=== PATIENT | male | born 1935 | race Caucasian/White ===

== ENCOUNTER 2017-05-06 01:30 | Inpatient (IN) | payer MEDICARE, OTHER ==
[2017-05-06] MEDS ORDERED: Acetaminophen 650 MG Supp RECTAL ONE (01:40)
--- NOTE | 2017-05-06 01:46 | EDM.PDOC ---
ED HPI GENERAL MEDICAL PROBLEM - General Chief Complaint: Fever Stated Complaint: low oxygenation Time Seen by Provider: 05/06/17 01:37 Source of Information: Reports: EMS, EMS Notes Reviewed, Intermediate Records History Limitations: Reports: Altered Mental Status - History of Present Illness INITIAL COMMENTS - FREE TEXT/NARRATIVE: PT PRESENTS FROM [facility] FOR C/O FEVER, DECREASED O2 SATS, AND ADVENTITIOUS BREATH SOUNDS THAT WAS SAID TO HAVE BEGUN TODAY. PT IS DNR. Onset: Gradual Onset Date: 05/06/17 Improves with: Reports: None Worsens with: Reports: None Associated Symptoms: Reports: Cough, Fever/Chills - Related Data Allergies Allergy/AdvReac Type Severity Reaction Status Date / Time Fish Containing Products Allergy Cannot Verified 09/25/16 14:24 Remember perfume Allergy Cannot Verified 09/25/16 14:24 Remember shellfish derived Allergy Cannot Verified 09/25/16 14:24 Remember trazodone Allergy Cannot Verified 09/25/16 14:24 Remember Home Meds: Home Meds Acetaminophen 325 - 650 mg PO Q4H PRN 01/03/16 [History] Aspirin 81 mg PO QAM 01/03/16 [History] Mirtazapine 7.5 mg PO BEDTIME 01/03/16 [History] Polyethylene Glycol 3350 [Miralax] 17 gm PO QAM 01/03/16 [History] Bisacodyl [Dulcolax] 10 mg RECTAL DAILY PRN 09/25/16 [History] Donepezil HCl [Aricept] 10 mg PO BEDTIME 09/25/16 [History] Magnesium Hydroxide [Milk of Magnesia] 30 ml PO DAILY PRN 09/25/16 [History] Levofloxacin [Levaquin] 750 mg PO DAILY #5 tablet 10/02/16 [Rx] Past Medical History Cardiovascular History: Reports: High Cholesterol, Hypertension Respiratory History: Reports: COPD Gastrointestinal History: Reports: Chronic Constipation, GERD Genitourinary History: Reports: Prostate Disorder Musculoskeletal History: Reports: Back Pain, Chronic Neurological History: Reports: Other (See Below) Other Neuro History: dementia Psychiatric History: Reports: Anxiety, Dementia, Depression Oncologic (Cancer) History: Reports: Prostate Dermatologic History: Reports: Other (See Below) Other Dermatologic History: reddened pio to right hand, forearm and upper arm. rash on left elbow - Past Surgical History Male Surgical History: Reports: Circumcision Social & Family History - Family History Cardiac: Reports: Other (See Below) Respiratory: Reports: None GI: Reports: None : Reports: None OBGYN: Reports: None Musculoskeletal: Reports: None Neurological: Reports: None Psychiatric: Reports: None Endocrine/Metabolic: Reports: None Hematologic: Reports: None Immunologic: Reports: None Dermatologic: Reports: None Oncologic: Reports: None - Tobacco Use Smoking Status *Q: Unknown Ever Smoked ED ROS GENERAL - Review of Systems Review Of Systems: ROS reveals no pertinent complaints other than HPI. Constitutional: Reports: Fever HEENT: Reports: No Symptoms Respiratory: Reports: Cough Cardiovascular: Reports: No Symptoms Endocrine: Reports: No Symptoms GI/Abdominal: Reports: No Symptoms : Reports: No Symptoms Musculoskeletal: Reports: No Symptoms Skin: Reports: No Symptoms Neurological: Reports: No Symptoms Psychiatric: Reports: No Symptoms Hematologic/Lymphatic: Reports: Easy Bruising Immunologic: Reports: No Symptoms ED EXAM, GENERAL - Physical Exam Exam: See Below Exam Limited By: Altered Mental Status General Appearance: Lethargic Eye Exam: Bilateral Eye: Normal Inspection Nose: Normal Inspection, Normal Mucosa, No Blood Throat/Mouth: Normal Inspection, Normal Oropharynx, No Airway Compromise Head: Atraumatic, Normocephalic Neck: Normal Inspection Respiratory/Chest: No Respiratory Distress, Rales, Rhonchi Cardiovascular: Regular Rate, Rhythm Extremities: Normal Inspection, No Pedal Edema Neurological: Slow to Respond Skin Exam: Warm, Dry, Intact, No Rash Course - Orders/Labs/Meds Orders: Active Orders 24 hr Category Date Time Status Chest 1V Frontal [CR] Stat Exams 05/06/17 01:38 Ordered B-TYPE NATRIURETIC PEPTIDE,BNP [CHEM] Stat Lab 05/06/17 01:38 Ordered CBC WITH AUTO DIFF [HEME] Stat Lab 05/06/17 01:38 Ordered COMPREHENSIVE METABOLIC PN,CMP [CHEM] Stat Lab 05/06/17 01:38 Ordered - Radiology Interpretation Free Text/Narrative:: CXR SHOWS BILAT LOWER LOBE INFILTRATES - Re-Assessments/Exams Free Text/Narrative Re-Assessment/Exam: 05/06/17 02:16 DISCUSSED CASE WITH DEVAN NICOLAS FROM [facility]. WILL ADMIT INPATIENT AND FOLLOW Departure - Departure Time of Disposition: 02:16 Disposition: Admitted As Inpatient 68 Condition: Serious Clinical Impression: Pneumonia Qualifiers: Pneumonia type: due to unspecified organism Laterality: bilateral Lung location : lower lobe of lung Qualified Code(s): J18.9 - Pneumonia, unspecified organism Fever Qualifiers: Encounter type: initial encounter - Discharge Information - My Orders Last 24 Hours: My Active Orders 05/06/17 01:38 Chest 1V Frontal [CR] Stat B-TYPE NATRIURETIC PEPTIDE,BNP [CHEM] Stat CBC WITH AUTO DIFF [HEME] Stat COMPREHENSIVE METABOLIC PN,CMP [CHEM] Stat - Assessment/Plan Last 24 Hours: My Active Orders 05/06/17 01:38 Chest 1V Frontal [CR] Stat B-TYPE NATRIURETIC PEPTIDE,BNP [CHEM] Stat CBC WITH AUTO DIFF [HEME] Stat COMPREHENSIVE METABOLIC PN,CMP [CHEM] Stat Assessment:: PNEUMONIA Plan: ADMIT INPATIENT
[2017-05-06] MEDS ORDERED: Azithromycin 500 MG in Sodium Chloride 0.9% 250 ML IV ONE (02:06)
[2017-05-06] MEDS ORDERED: cefTRIAXone 1 GM Vial IVPUSH ONE (02:06)
[2017-05-06 02:29] LABS: CHLORIDE,CL 104 mmol/L (98-115); SODIUM,NA 142 mmol/L (136-145)
[2017-05-06] MEDS ORDERED: Sodium Chloride 0.9% 100 ML ONE (03:09)
[2017-05-06] MEDS ORDERED: Acetaminophen 325 MG Tab PO PRN (03:49)
--- NOTE | 2017-05-06 09:45 | PCM.HP ---
H&P History of Present Illness - General Date of Service: 05/06/17 Source of Information: Old Records, Provider, RN History Limitations: Reports: Altered Mental Status - History of Present Illness Initial Comments - Free Text/Narative: This 81-year-old gentleman was admitted through the ED he is a resident of a long-term care center with significant dementia he had came in due to the nursing staff stating he had a temperature of 101, with low oxygen saturations. No other details on history/information from ED admitting provider, patient does not communicate at all due to his severe dementia. Patient is on the memory care unit at [place]. He did sustain a fall on March 28 however did not hit his head, his knees gave out he slowed slowly lowered himself to the floor--no other injury. Patient is a DNR - Related Data Allergies/Adverse Reactions: Allergies Allergy/AdvReac Type Severity Reaction Status Date / Time Fish Containing Products Allergy Cannot Verified 05/06/17 03:32 Remember perfume Allergy Cannot Verified 05/06/17 03:32 Remember shellfish derived Allergy Cannot Verified 05/06/17 03:32 Remember trazodone Allergy Cannot Verified 05/06/17 03:32 Remember Home Medications: Home Meds Acetaminophen 325 - 650 mg PO Q4H PRN 01/03/16 [History] Aspirin 81 mg PO 0900 01/03/16 [History] Polyethylene Glycol 3350 [Miralax] 17 gm PO 0900 01/03/16 [History] Donepezil HCl [Aricept] 10 mg PO 1800 09/25/16 [History] Magnesium Hydroxide [Milk of Magnesia] 30 ml PO DAILY PRN 09/25/16 [History] Past Medical History HEENT History: Reports: Allergic Rhinitis Cardiovascular History: Reports: CAD, High Cholesterol, Hypertension Respiratory History: Reports: COPD Gastrointestinal History: Reports: Chronic Constipation, GERD Genitourinary History: Reports: Prostate Disorder Musculoskeletal History: Reports: Back Pain, Chronic Neurological History: Reports: Other (See Below) Other Neuro History: dementia with behavior disturbances. Psychiatric History: Reports: Anxiety, Dementia, Depression, Other (See Below) Other Psychiatric History: Dementia with behavior disturbances Oncologic (Cancer) History: Reports: Prostate Dermatologic History: Reports: Other (See Below) Other Dermatologic History: reddened pio to right hand, forearm and upper arm. rash on left elbow, which looks similar to psoriasis - Past Surgical History Male Surgical History: Reports: Circumcision Social & Family History - Family History Cardiac: Reports: Other (See Below) Respiratory: Reports: None GI: Reports: None : Reports: None OBGYN: Reports: None Musculoskeletal: Reports: None Neurological: Reports: None Psychiatric: Reports: None Endocrine/Metabolic: Reports: None Hematologic: Reports: None Immunologic: Reports: None Dermatologic: Reports: None Oncologic: Reports: None - Tobacco Use Smoking Status *Q: Unknown Ever Smoked H&P Review of Systems - Review of Systems: Review Of Systems: See Below Free Text/Narrative: Unable to obtain review of systems due to dementia and altered mental status General: Denies: Fever Exam - Exam Exam: See Below - Vital Signs Vital Signs: Last Vital Signs Temp 99.6 F 05/06/17 06:22 Pulse 91 05/06/17 06:22 Resp 28 H 05/06/17 06:22 BP 107/51 L 05/06/17 06:22 Pulse Ox 93 L 05/06/17 06:35 Weight: 156 lb 6 oz - Exam Quality Assessment: Supplemental Oxygen (High flow nonrebreather oxygen), DVT Prophylaxis General: Other (Will open eyes to stimulus). No: Alert, Oriented HEENT: No: Mucosa Moist & [place] Neck: Supple Lungs: Decreased Breath Sounds, Crackles. No: Wheezing Cardiovascular: Regular Rate, Regular Rhythm GI/Abdominal Exam: Soft Rectal (Males) Exam: Deferred Extremities: No Pedal Edema Peripheral Pulses: 2+: Radial (L), Radial (R) Skin: Other (Extensive bruising upper extremities) Neurological: Sensation Intact, Babinski, Babinski Absent Neuro Extensive - Mental Status: Opens Eyes to Commands, Withdraws to Pain. No : Alert, Oriented x3 Psychiatric: No: Alert - Patient Data Result Diagrams: 05/06/17 01:50 05/06/17 01:50 *Q Meaningful Use (ADM) - VTE *Q VTE Criteria *Q: - Stroke *Q Stroke Criteria *Q: - AMI *Q AMI Criteria *Q: Problem List Initiated/Reviewed/Updated: Yes Orders Last 24hrs: Active Orders 24 hr Category Date Time Status Bedrest Bathroom Privileges [RC] .PRN Care 05/06/17 03:52 Active Soft Diet [DIET] Diet 09/18/17 Breakfast Active CULTURE BLOOD [BC] Stat Lab 05/06/17 01:50 Received CULTURE BLOOD [BC] Stat Lab 05/06/17 02:05 Received Acetaminophen [Tylenol] Med 05/06/17 03:49 Active 325 - 650 mg PO Q4H PRN Blood Culture x2 Reflex Set [OM.PC] Stat Oth 05/06/17 02:41 Ordered Medication Orders Acetaminophen (Tylenol) 325 - 650 mg PO Q4H PRN PRN Reason: Pain Assessment/Plan Comment:: This 81-year-old gentleman was admitted through the ED he is a resident of a long-term care center with significant dementia he had came in due to the nursing staff stating he had a temperature of 101, with low oxygen saturations. No other details on history/information from ED admitting provider, patient does not communicate at all due to his severe dementia. Patient is on the memory care unit at [place]. He did sustain a fall on March 28 however did not hit his head, his knees gave out he slowed slowly lowered himself to the floor--no other injury. Patient is a DNR Admitting workup included, chest x-ray, CBC CMP, blood cultures, was given one time azithromycin and Rocephin, oxygen therapy Impression/plan, Pneumonia, RLL/LLL, HCA, likely M.D.O, uncertain if aspiration, change antibiotics to Levaquin and broad-spectrum Zosyn, oxygen support, add IV corticosteroid treatment today. Patient in serious condition. Will add IV fluids at D5 and half at 40 mL per hour DVT prophylaxis, JANAY stockings, heparin 5000 units subcutaneous GI stress prophylaxis, Protonix IV push Other chronic medical conditions, Coronary artery disease, ASA Asthma, stable Hyperlipidemia. On no medications Hypertension, essential. Stable Dementia, profound. Will discontinue Aricept likely no more benefit Disposition, patient in acute care status, change antibiotics, start IV fluids, add corticosteroid treatment. Stop Aricept, blood culture surveillance, IV Fluids.
[2017-05-06] MEDS ORDERED: Magnesium Hydroxide 400 MG/5 ML Susp 30 ML Cup PO PRN (10:00)
[2017-05-06] MEDS ORDERED: Acetaminophen 650 MG Supp RECTAL PRN (10:01)
[2017-05-06] MEDS: methylPREDNISolone Sodium Succinate 125 MG/2 ML SDV IVPUSH SCH (10:52)
[2017-05-06] MEDS: Heparin Sodium 5,000 Units/ML Vial SUBCUT SCH ×2 (10:52→22:09)
[2017-05-06] MEDS: Pantoprazole 40 MG Vial IVPUSH SCH (10:59)
[2017-05-06] MEDS: Dextrose 5%-0.45% NaCl 1,000 ML IV SCH (11:03)
[2017-05-06] MEDS: Piperacillin/Tazobactam/Dext 50 ML IV SCH ×6 (11:10→22:10)
[2017-05-06] MEDS: Aspirin 81 MG Tab.Chew PO SCH (11:15)
[2017-05-06] MEDS: Levofloxacin/Dextrose 5%-Water 100 ML IV SCH (12:20)
[2017-05-06] MEDS: Levofloxacin/Dextrose 5%-Water 50 ML IV SCH (13:32)
[2017-05-06] MEDS ORDERED: Donepezil 10 MG Tab PO SCH (18:00)
[2017-05-07] MEDS: Piperacillin/Tazobactam/Dext 50 ML IV SCH ×8 (05:05→22:08)
[2017-05-07] MEDS: Pantoprazole 40 MG Vial IVPUSH SCH (07:35)
[2017-05-07] MEDS: Polyethylene Glycol 3350 Powder 17 GM Packet PO SCH (08:07)
[2017-05-07] MEDS: Aspirin 81 MG Tab.Chew PO SCH (08:07)
[2017-05-07] MEDS: methylPREDNISolone Sodium Succinate 125 MG/2 ML SDV IVPUSH SCH (08:07)
[2017-05-07] MEDS: Heparin Sodium 5,000 Units/ML Vial SUBCUT SCH ×2 (09:59→22:08)
--- NOTE | 2017-05-07 10:09 | PCM.PN ---
- General Info Functional Status: Reports: Pain Controlled, Tolerating Diet (Nurses reporting patient starting to eat however very little), New Symptoms (Severe dementia however patient much more alert today). Denies: Ambulating, Incentive Spirometry - Review of Systems General: Reports: Other (Patient much more alert and responsive however severe dementia, off nonrebreather however on high flow nasal cannula. Review of systems coming from direct observation from me and nursing staff ). Denies: Fever Pulmonary: Reports: Shortness of Breath (Much less shortness of breath today), Cough Gastrointestinal: Denies: Vomiting - Patient Data Vitals - Most Recent: Last Vital Signs Temp 98.9 F 05/07/17 07:00 Pulse 82 05/07/17 07:00 Resp 20 05/07/17 07:00 BP 112/65 05/07/17 07:00 Pulse Ox 100 05/07/17 09:10 Weight - Most Recent: 156 lb 6 oz I&O - Last 24 Hours: Intake & Output 05/06/17 05/07/17 05/07/17 22:59 06:59 14:59 Intake Total 469 409 Balance 469 409 Lab Results Last 24 Hours: Laboratory Results - last 24 hr 05/07/17 05/07/17 Range/Units 07:05 07:05 Sodium 145 (136-145) mmol/L Potassium 4.5 (3.3-5.3) mmol/L Chloride 106 (98-115) mmol/L Carbon Dioxide 28.9 (21.0-32.0) mmol/L BUN 28 H (6-25) mg/dL Creatinine 1.32 H (0.51-1.17) mg/dL Est Cr Clr Drug Dosing 45.53 mL/min Estimated GFR (MDRD) 52 mL/min Glucose 151 H (70-110) mg/dL Calcium 8.6 L (8.7-10.3) mg/dL C-Reactive Protein 36.4 H (0.0-0.9) mg/dL Med Orders - Current: Current Medications Acetaminophen (Tylenol) 650 mg RECTAL Q6H PRN PRN Reason: Fever Albuterol/Ipratropium (Duoneb 3.0-0.5 Mg/3 Ml) 3 ml NEB Q6HRRT [facility] Aspirin (Aspirin) 81 mg PO DAILY [facility] Last Admin: 05/07/17 08:07 Dose: 81 mg Heparin Sodium (Porcine) (Heparin Sodium) 5,000 units SUBCUT Q12H [facility] Last Admin: 05/06/17 22:09 Dose: 5,000 units Dextrose/Sodium Chloride (Dextrose 5%-1/2 Ns) 1,000 mls @ 45 mls/hr IV ASDIRECTED [facility] Last Admin: 05/06/17 11:03 Dose: 45 mls/hr Levofloxacin/Dextrose (Levaquin In D5w 500 Mg/100 Ml) 100 mls @ 100 mls/hr IV Q24H [facility] Last Admin: 05/06/17 12:20 Dose: 100 mls/hr Levofloxacin/Dextrose (Levaquin In D5w 250 Mg/50 Ml) 50 mls @ 50 mls/hr IV Q24H [facility] Last Admin: 05/06/17 13:32 Dose: 50 mls/hr Piperacillin/Tazobactam/Dextrose (Zosyn In Dextrose Iso-Osmotic 3.375 Gm) 50 mls @ 100 mls/hr IV Q6HR [facility] Last Admin: 05/07/17 05:05 Dose: 100 mls/hr Magnesium Hydroxide (Milk Of Magnesia) 30 ml PO DAILY PRN PRN Reason: Constipation Methylprednisolone Sodium Succinate (Solu-Medrol) 60 mg IVPUSH DAILY [facility] Last Admin: 05/07/17 08:07 Dose: 60 mg Pantoprazole Sodium (Protonix Iv) 40 mg IVPUSH ACBREAKFAST [facility] Last Admin: 05/07/17 07:35 Dose: 40 mg Polyethylene Glycol (Miralax) 17 gm PO DAILY [facility] Last Admin: 05/07/17 08:07 Dose: 17 gm Discontinued Medications Acetaminophen (Tylenol) 650 mg RECTAL NOW ONE Stop: 05/06/17 01:41 Last Admin: 05/06/17 02:10 Dose: 650 mg Acetaminophen (Tylenol) 325 - 650 mg PO Q4H PRN PRN Reason: Pain Ceftriaxone Sodium (Rocephin) 1 gm IVPUSH ONETIME ONE Stop: 05/06/17 02:07 Last Admin: 05/06/17 02:28 Dose: 1 gm Donepezil HCl (Aricept) 10 mg PO 1800 [facility] Azithromycin 500 mg/ Sodium (Chloride) 250 mls @ 250 mls/hr IV ONETIME ONE Stop: 05/06/17 03:05 Last Admin: 05/06/17 03:15 Dose: 250 mls/hr Sodium Chloride (Normal Saline) Confirm Administered Dose 100 mls @ as directed .ROUTE .STK-MED ONE Stop: 05/06/17 03:10 Last Admin: 05/06/17 03:16 Dose: 100 ml - Exam Quality Assessment: Supplemental Oxygen (Off nonrebreather however 10 L nasal cannula). No: Skin Breakdown General: Alert, Cooperative, Mild Distress (Breathing has improved). No: Oriented Neck: Supple Lungs: Crackles Cardiovascular: Regular Rate, Regular Rhythm GI/Abdominal Exam: Soft Extremities: No Pedal Edema Peripheral Pulses: 2+: Radial (L), Radial (R) Skin: Warm, Dry, Intact Neurological: Other (Severe dementia, noncommunicable) Psy/Mental Status: Alert. No: Anxious, Agitated - Problem List Review Problem List Initiated/Reviewed/Updated: Yes - My Orders Last 24 Hours: My Active Orders 05/06/17 10:00 Heparin Sodium 5,000 units SUBCUT Q12H Magnesium Hydroxide [Milk of Magnesia] 30 ml PO DAILY PRN 05/06/17 10:01 Acetaminophen [Tylenol] 650 mg RECTAL Q6H PRN 05/06/17 10:15 Dextrose 5%-0.45% NaCl [Dextrose 5%-1/2 NS] 1,000 ml IV ASDIRECTED 05/06/17 10:45 methylPREDNISolone Sod Succ [Solu-MEDROL] 60 mg IVPUSH DAILY 05/06/17 11:00 Aspirin 81 mg PO DAILY Piperacillin/Tazobactam/Dext [Zosyn in Dextrose Iso-Osmotic 3.375 GM] 50 ml IV Q6HR 05/06/17 11:30 Pantoprazole [ProTONIX IV] 40 mg IVPUSH ACBREAKFAST 05/06/17 12:30 Levofloxacin/Dextrose 5%-Water [Levaquin in D5W 250 MG/50 ML] 50 ml IV Q24H Levofloxacin/Dextrose 5%-Water [Levaquin in D5W 500 MG/100 ML] 100 ml IV Q24H 05/07/17 09:00 RT Aerosol Therapy [RC] .PRN Polyethylene Glycol 3350 [MiraLAX] 17 gm PO DAILY 05/07/17 11:00 Albuterol/Ipratropium [DuoNeb 3.0-0.5 MG/3 ML] 3 ml NEB Q6HRRT 05/08/17 05:15 CBC WITH AUTO DIFF [HEME] AM - Plan Plan:: This 81-year-old gentleman was admitted through the ED he is a resident of a long-term care center with significant dementia he had came in due to the nursing staff stating he had a temperature of 101, with low oxygen saturations. No other details on history/information from ED admitting provider, patient does not communicate at all due to his severe dementia. Patient is on the memory care unit at [place]. He did sustain a fall on March 28 however did not hit his head, his knees gave out he slowed slowly lowered himself to the floor--no other injury. Patient is a DNR Admitting workup included, chest x-ray, CBC CMP, blood cultures, was given one time azithromycin and Rocephini ED, oxygen therapy Update today, patient much more alert and responsive however severe and profound dementia no purposeful communication. Adequate MAP, no fevers, O2 saturations upper 90s. Some cough, starting to eat however very little. BC surveillance negative to date. CRP elevated at 36. unable to obtain sputum culture. qSOFA 08/21 - Impression/plan, Pneumonia, RLL/LLL, HCA, likely M.D.O, doubtful if aspiration, seems to be responding to levaquin and broad-spectrum Zosyn, oxygen support--add duo nebs hopefully we can wean him off oxygen needs, attempt to cough and deep breathe, corticosteroid 60 mg IV push today. Will add IV fluids at D5 and half at 40 mL per hour DVT prophylaxis, JANAY stockings, heparin 5000 units subcutaneous GI stress prophylaxis, Protonix IVP daily CODE STATUS, DO NOT RESUSCITATE Other chronic medical conditions, Coronary artery disease, ASA Asthma, stable Hyperlipidemia. On no medications Hypertension, essential. Stable Dementia, profound. Will discontinue Aricept likely no more benefit Disposition, remain in acute care today, seeing improvement today, continue antibiotics, attempt to wean down oxygen , 2 nebs, promote coughing and deep breathing as much as possible, continue with IV fluids and encourage eating. Labs in a.m. including CRP surveillance
[2017-05-07] MEDS: Dextrose 5%-0.45% NaCl 1,000 ML IV SCH (10:55)
[2017-05-07] MEDS: Albuterol/Ipratropium 3.0-0.5 MG/3 ML Neb Soln NEB SCH ×3 (11:13→22:06)
[2017-05-07] MEDS: Levofloxacin/Dextrose 5%-Water 100 ML IV SCH (12:17)
[2017-05-07] MEDS: Levofloxacin/Dextrose 5%-Water 50 ML IV SCH (13:24)
[2017-05-08] MEDS: Piperacillin/Tazobactam/Dext 50 ML IV SCH ×8 (05:11→22:02)
[2017-05-08] MEDS: Albuterol/Ipratropium 3.0-0.5 MG/3 ML Neb Soln NEB SCH ×4 (05:42→22:02)
[2017-05-08] MEDS: Pantoprazole 40 MG Vial IVPUSH SCH (07:42)
[2017-05-08] MEDS: Polyethylene Glycol 3350 Powder 17 GM Packet PO SCH (08:11)
[2017-05-08] MEDS: Aspirin 81 MG Tab.Chew PO SCH (08:11)
[2017-05-08] MEDS: methylPREDNISolone Sodium Succinate 125 MG/2 ML SDV IVPUSH SCH (08:11)
--- NOTE | 2017-05-08 08:29 | PCM.PN ---
- General Info Date of Service: 05/08/17 Subjective Update: Inability to perform complete review of systems due to severe dementia Functional Status: Reports: Pain Controlled, Tolerating Diet (R Ring to eat some ), Urinating (Incontinent). Denies: Ambulating - Review of Systems General: Denies: Fever Pulmonary: Reports: Cough. Denies: Shortness of Breath - Patient Data Vitals - Most Recent: Last Vital Signs Temp 98.9 F 05/08/17 06:36 Pulse 80 05/08/17 06:36 Resp 18 05/08/17 06:36 BP 125/71 05/08/17 06:36 Pulse Ox 95 05/08/17 06:36 Weight - Most Recent: 156 lb 6 oz I&O - Last 24 Hours: Intake & Output 05/07/17 05/08/17 05/08/17 22:59 06:59 14:59 Intake Total 465 424 Balance 465 424 Lab Results Last 24 Hours: Laboratory Results - last 24 hr 05/07/17 05/08/17 05/08/17 Range/Units 07:05 07:15 07:15 WBC 6.6 (5.0-10.0) 10^3/uL RBC 3.78 L (4.50-6.00) 10^6/uL Hgb 11.3 L (13.0-17.0) g/dL Hct 33.2 L (40.0-52.0) % MCV 87.9 (82.0-92.0) fL MCH 29.9 (27.0-31.0) pg MCHC 34.1 (32.0-36.0) g/dL RDW 12.7 (11.5-14.5) % Plt Count 147 L (150-300) 10^3/uL MPV 7.2 L (7.4-10.4) fL Neut % (Auto) 86.5 H (50.0-70.0) % Lymph % (Auto) 4.8 L (20.0-40.0) % Hill % (Auto) 2.8 (2.0-8.0) % Eos % (Auto) 0.2 L (1.0-3.0) % Baso % (Auto) 5.7 H (0.0-1.0) % Neut # (Auto) 5.7 (2.5-7.0) 10^3/uL Lymph # (Auto) 0.3 L (1.0-4.0) 10^3/uL Hill # (Auto) 0.2 (0.1-0.8) 10^3/uL Eos # (Auto) 0.0 L (0.1-0.3) 10^3/uL Baso # (Auto) 0.4 H (0.0-0.1) 10^3/uL Sodium 145 (136-145) mmol/L Potassium 4.5 (3.3-5.3) mmol/L Chloride 106 (98-115) mmol/L Carbon Dioxide 28.9 (21.0-32.0) mmol/L BUN 28 H (6-25) mg/dL Creatinine 1.32 H (0.51-1.17) mg/dL Est Cr Clr Drug Dosing 45.53 mL/min Estimated GFR (MDRD) 52 mL/min Glucose 151 H (70-110) mg/dL Calcium 8.6 L (8.7-10.3) mg/dL C-Reactive Protein 18.6 H (0.0-0.9) mg/dL Med Orders - Current: Current Medications Acetaminophen (Tylenol) 650 mg RECTAL Q6H PRN PRN Reason: Fever Albuterol/Ipratropium (Duoneb 3.0-0.5 Mg/3 Ml) 3 ml NEB Q6HRRT [facility] Last Admin: 05/08/17 05:42 Dose: 3 ml Aspirin (Aspirin) 81 mg PO DAILY [facility] Last Admin: 05/08/17 08:11 Dose: 81 mg Heparin Sodium (Porcine) (Heparin Sodium) 5,000 units SUBCUT Q12H [facility] Last Admin: 05/07/17 22:08 Dose: 5,000 units Dextrose/Sodium Chloride (Dextrose 5%-1/2 Ns) 1,000 mls @ 45 mls/hr IV ASDIRECTED [facility] Last Admin: 05/07/17 10:55 Dose: 45 mls/hr Levofloxacin/Dextrose (Levaquin In D5w 500 Mg/100 Ml) 100 mls @ 100 mls/hr IV Q24H [facility] Last Admin: 05/07/17 12:17 Dose: 100 mls/hr Levofloxacin/Dextrose (Levaquin In D5w 250 Mg/50 Ml) 50 mls @ 50 mls/hr IV Q24H [facility] Last Admin: 05/07/17 13:24 Dose: 50 mls/hr Piperacillin/Tazobactam/Dextrose (Zosyn In Dextrose Iso-Osmotic 3.375 Gm) 50 mls @ 100 mls/hr IV Q6HR [facility] Last Admin: 05/08/17 05:11 Dose: 100 mls/hr Magnesium Hydroxide (Milk Of Magnesia) 30 ml PO DAILY PRN PRN Reason: Constipation Methylprednisolone Sodium Succinate (Solu-Medrol) 60 mg IVPUSH DAILY [facility] Last Admin: 05/08/17 08:11 Dose: 60 mg Pantoprazole Sodium (Protonix Iv) 40 mg IVPUSH ACBREAKFAST [facility] Last Admin: 05/08/17 07:42 Dose: 40 mg Polyethylene Glycol (Miralax) 17 gm PO DAILY [facility] Last Admin: 05/08/17 08:11 Dose: 17 gm Discontinued Medications Acetaminophen (Tylenol) 650 mg RECTAL NOW ONE Stop: 05/06/17 01:41 Last Admin: 05/06/17 02:10 Dose: 650 mg Acetaminophen (Tylenol) 325 - 650 mg PO Q4H PRN PRN Reason: Pain Ceftriaxone Sodium (Rocephin) 1 gm IVPUSH ONETIME ONE Stop: 05/06/17 02:07 Last Admin: 05/06/17 02:28 Dose: 1 gm Donepezil HCl (Aricept) 10 mg PO 1800 [facility] Azithromycin 500 mg/ Sodium (Chloride) 250 mls @ 250 mls/hr IV ONETIME ONE Stop: 05/06/17 03:05 Last Admin: 05/06/17 03:15 Dose: 250 mls/hr Sodium Chloride (Normal Saline) Confirm Administered Dose 100 mls @ as directed .ROUTE .STK-MED ONE Stop: 05/06/17 03:10 Last Admin: 05/06/17 03:16 Dose: 100 ml - Exam Quality Assessment: Supplemental Oxygen General: Alert, Cooperative, No Acute Distress Neck: Supple Lungs: Decreased Breath Sounds, Crackles Cardiovascular: Regular Rate, Regular Rhythm GI/Abdominal Exam: Normal Bowel Sounds, Soft Extremities: No Pedal Edema Peripheral Pulses: 2+: Radial (L), Radial (R) Skin: Warm, Dry, Intact Psy/Mental Status: Alert. No: Agitated - Problem List Review Problem List Initiated/Reviewed/Updated: Yes - My Orders Last 24 Hours: My Active Orders 05/07/17 09:00 RT Aerosol Therapy [RC] .PRN Polyethylene Glycol 3350 [MiraLAX] 17 gm PO DAILY 05/07/17 11:00 Albuterol/Ipratropium [DuoNeb 3.0-0.5 MG/3 ML] 3 ml NEB Q6HRRT - Plan Plan:: This 81-year-old gentleman was admitted through the ED he is a resident of a long-term care center with significant dementia he had came in due to the nursing staff stating he had a temperature of 101, with low oxygen saturations. No other details on history/information from ED admitting provider, patient does not communicate at all due to his severe dementia. Patient is on the memory care unit at [facility]. He did sustain a fall on March 28 however did not hit his head, his knees gave out he slowed slowly lowered himself to the floor--no other injury. Patient is a DNR Admitting workup included, chest x-ray, CBC CMP, blood cultures, was given one time azithromycin and Rocephini ED, oxygen therapy Update today, patient continues to be more alert and responsive however severe dementia--no purposeful communication. Adequate MAP, no fevers, O2 saturations upper 90--Quiring less oxygen now. Some cough, starting to eat however very little. BC surveillance negative to date. CRP decreased by 50% unable to obtain sputum culture. qSOFA 08/21 - Impression/plan, Pneumonia, RLL/LLL, HCA, likely M.D.O, doubtful if aspiration, responding clinically, to levaquin and broad-spectrum Zosyn, oxygen support--add duo nebs. Requiring less oxygen, attempt to cough and deep breathe, corticosteroid 60 mg IV push today. KVO IV Will add IV fluids at D5 and half at 40 mL per hour DVT prophylaxis, JANAY stockings, heparin 5000 units subcutaneous GI stress prophylaxis, Protonix IVP daily CODE STATUS, DO NOT RESUSCITATE Other chronic medical conditions, Coronary artery disease, ASA Asthma, stable Hyperlipidemia. On no medications Hypertension, essential. Stable Dementia, profound. Will discontinue Aricept likely no more benefit Disposition, remain in acute care today, requiring less oxygen, seems to be responding to treatment well, CRP decreased by 50%, repeat chest x-ray in a.m. Continue IV antibiotics. Saline lock fluids today so must increase oral intake if possible, encourage eating. Possibility discharge in a.m.
[2017-05-08] MEDS ORDERED: Sodium Chloride 0.9% 5 ML Syringe FLUSH PRN (09:50)
[2017-05-08] MEDS: Heparin Sodium 5,000 Units/ML Vial SUBCUT SCH ×2 (10:16→22:01)
[2017-05-08] MEDS ORDERED: Sodium Chloride 0.9% 250 ML IV SCH (11:15)
[2017-05-08] MEDS: Levofloxacin/Dextrose 5%-Water 100 ML IV SCH (11:34)
[2017-05-08] MEDS: Levofloxacin/Dextrose 5%-Water 50 ML IV SCH (13:14)
[2017-05-09] MEDS: Piperacillin/Tazobactam/Dext 50 ML IV SCH ×2 (05:36)
[2017-05-09] MEDS: Albuterol/Ipratropium 3.0-0.5 MG/3 ML Neb Soln NEB SCH ×2 (05:57→10:27)
[2017-05-09 06:45] VITALS: BP 103/46
[2017-05-09] MEDS: Polyethylene Glycol 3350 Powder 17 GM Packet PO SCH (08:31)
[2017-05-09] MEDS: Aspirin 81 MG Tab.Chew PO SCH (08:31)
[2017-05-09] MEDS: Pantoprazole 40 MG Vial IVPUSH SCH (09:49)
[2017-05-09] MEDS: methylPREDNISolone Sodium Succinate 125 MG/2 ML SDV IVPUSH SCH (09:49)
--- NOTE | 2017-05-10 08:03 | DISCH ---
FINAL DIAGNOSES: Pneumonia, healthcare-acquired; right lower lobe and left lower lobe, resolved. Other chronic medical conditions include coronary artery disease, asthma, hyperlipidemia, hypertension, and profound dementia. BRIEF HISTORY: This 81-year-old patient with profound dementia, noncommunicable, however, alert who was brought into the ED. He is a resident of a long-term care center. He came in for a temperature of a 101, low oxygen saturations, very difficult to attain a complete accurate history due to his severe dementia. He is a resident of a Memory Care Unit at [facility]. He did sustain a fall on 03/28/2017, however, did not hit his head. He was admitted through the ED for pneumonia. Admitting workup included a chest x-ray which showed a right lower lobe and left lower lobe pneumonia. Blood cultures were drawn, CBC and BMP. He was given a one time azithromycin and Rocephin in the emergency department, then he was admitted for inpatient care for pneumonia. HOSPITAL COURSE: Hospital course went well. Antibiotics were changed after ED admission to Levaquin and broad-spectrum Zosyn. Corticosteroid treatments were given for 3 days. Attempt for cough and deep breathing were done. He responded well for the antibiotic treatment. He was given heparin subcu for DVT prophylaxis. He was given Protonix for stress ulcer prophylaxis. He was a do- not-resuscitate. He never became hemodynamically unstable. He never ran a temperature. MICROBIOLOGY: Blood cultures, no growth after 3 days. We were not able to get a sputum culture on the patient. LABORATORY DATA: His white count was 4.7 on admission, 6.6 on discharge. Neutrophils were 90 on admission, decreasing on discharge. Sodium and potassium were good. BUN 28, creatinine 1.32, likely prerenal. C- reactive protein was 36, this was down on admission by at least 50%. BNP 96. PHYSICAL EXAM ON DISCHARGE: VITAL SIGNS: Stable. GENERAL: The patient alert, however, noncommunicable. LUNGS: Actually clear to our auscultation. CARDIOVASCULAR: Regular rate and rhythm. He had no edema. He did not have adequate intake or output early on admission, however, he did start to respond taking more orals. He was given IV fluids. He was becoming more euvolemic upon discharge. Chest x-ray on the day of discharge showed full resolution of right lower and left lower lobe pneumonia. He was given Levaquin upon discharge. DISPOSITION: The patient will be discharged back to [facility]. He will receive Levaquin 750 mg p.o. every 48 hours x3 total doses, cough and deep breathing, nurses to report any fevers or worsening condition. He can be seen on rounds next available rounds next week. RECOMMENDATIONS AT FOLLOWUP: Assess pneumococcal immunization status at the [facility], he can be given that there. MEDICAL DECISION MAKIN minutes was spent on this discharge planning process, physical exam, pharmacy consultation, and treatment. /[id number]/MODL
== END 2017-05-09 13:10 | DRG 195 ==
LOC: KA.ED 01:30 → KA.MS 02:30
PROVIDERS: ADMIT Physician Assistant Medical; ATTEND Physician Assistant Medical
DX: J18.9 Pneumonia, unspecified organism (principal); R50.9 Fever, unspecified; E78.00 Pure hypercholesterolemia, unspecified; I25.10 Atherosclerotic heart disease of native coronary artery without angina pectoris; E78.5 Hyperlipidemia, unspecified; I10 Essential (primary) hypertension; J44.9 Chronic obstructive pulmonary disease, unspecified; F03.90 Unspecified dementia, unspecified severity, without behavioral disturbance, psychotic disturbance, mood disturbance, and anxiety; F41.8 Other specified anxiety disorders; Z88.8 Allergy status to other drugs, medicaments and biological substances; Z79.899 Other long term (current) drug therapy; Z79.82 Long term (current) use of aspirin; Z66 Do not resuscitate
CPT/HCPCS: 36415; 71010; 80053; 83880; 85025; 87040 ×2; 96374; 99283; 99285; A9270; J0696; 80048; 86140; 94640; 94640-76; C9113; J0456; J1644; J1956; J2543; J2930; J7042; J7050